=== PATIENT | male | born 1930 | race Caucasian/White ===

== ENCOUNTER 2017-11-12 14:29 | Inpatient (IN) | payer BC, MEDICARE ==
[~2017-11-12] VITALS: Ht 180.3 cm; Wt 88.5 kg
[2017-11-12] MEDS ORDERED: FEXO180T94 PO (14:43)
[2017-11-12] MEDS ORDERED: VALS160T2 PO (14:43)
[2017-11-12] MEDS ORDERED: METO50TA7 PO (14:43)
[2017-11-12] MEDS ORDERED: PROP225C11 PO (14:43)
[2017-11-12] MEDS ORDERED: DUTA0.5C PO (14:44)
[2017-11-12] MEDS ORDERED: SILO8CAP PO (14:44)
[2017-11-12] MEDS ORDERED: AZEL30SP2 NS (14:44)
[2017-11-12] MEDS ORDERED: BUDE8.43 NS (14:45)
[2017-11-12] MEDS ORDERED: BUDE180A INH (14:46)
[2017-11-12] MEDS ORDERED: MULT-978 PO (14:53)
[2017-11-12] MEDS ORDERED: ASPI81TA31 PO (14:54)
[2017-11-12] MEDS ORDERED: ALIGN PROBIOTIC PO (14:54)
[2017-11-12] MEDS ORDERED: OMEG1CAP18 PO (14:54)
[2017-11-12] MEDS ORDERED: UBID200C35 PO (14:54)
[2017-11-12] MEDS ORDERED: MELA3TAB PO (14:54)
[2017-11-12] MEDS ORDERED: ACET325C PO (14:54)
[2017-11-12] MEDS ORDERED: CA C1TAB98 PO (14:54)
[2017-11-12] MEDS ORDERED: ASCO500T9 PO (14:54)
[2017-11-12] MEDS ORDERED: IV NORMAL SALINE 1000 ML BAG IV ONE ×2 (15:00→16:15)
[2017-11-12 15:16] LABS: BASOPHILS % (AUTO) 0.2 % (0.0-2.0); EOSINOPHILS % (AUTO) 0.5 % (0.0-7.0); HEMATOCRIT 38.6 % (36.7-47.1); HEMOGLOBIN 12.9 g/dL (12.5-16.3); LYMPHOCYTES # (AUTO) 0.8 K/uL (20.0-40.0); MEAN CORPUSCULAR HEMOGLOBIN 30.4 uug (23.8-33.4); MEAN CORPUSCULAR HGB CONC 33 g/dL (32.5-36.3); MEAN CORPUSCULAR VOLUME 90.9 fL (73.0-96.2); MONOCYTES # (AUTO) 0.9 K/uL (2.0-10.0); MONOCYTES % (AUTO) 10.2 % (0.0-11.0); NEUTROPHILS % (AUTO) 80.1 % (38.5-71.5); PLATELET COUNT (AUTO) 211 K/uL (152-348); RED BLOOD CELL COUNT(AUTO) 4.25 MIL/uL (4.06-5.63); WHITE BLOOD COUNT (AUTO) 8.7 K/uL (3.6-10.2)
[2017-11-12 15:31] LABS: ALANINE AMINOTRANSFERASE 27 U/L (16-63); ALKALINE PHOSPHATASE 75 U/L (50-136); ASPARTATE AMINOTRANSFERASE 26 U/L (15-37); BILIRUBIN,DIRECT 0.1 mg/dL (0.0-0.2); BILIRUBIN,TOTAL 0.4 mg/dL (0.2-1.0); CARBON DIOXIDE 27 mmol/L (21-32); CHLORIDE 102 mmol/L (98-107); CREATININE 1.2 mg/dL (0.6-1.3); GLUCOSE 153 mg/dL (74-106); LIPASE 200 U/L (73-393); UREA NITROGEN, BLOOD 20 mg/dL (7-18)
[2017-11-12] MEDS ORDERED: CEFTRIAXONE 1 G in IV DEXTROSE 5% 50 ML IV ONE (16:15)
[2017-11-12] MEDS ORDERED: METRONIDAZOLE 500 MG/NS 100ML 100 ML IV ONE ×2 (16:15→16:22)
[2017-11-12] MEDS ORDERED: CEFTRIAXONE 1 G VIAL ONE (16:22)
[2017-11-12] MEDS ORDERED: IV NORMAL SALINE 100 ML ONE (16:28)
[2017-11-12] MEDS ORDERED: IOHEXOL 300MG/ML 100 ML INFUS..BTL ONE (16:28)
[2017-11-12] MEDS ORDERED: NORMAL SALINE FLUSH 10 ML DISP.SYRIN ONE (16:28)
[2017-11-12 16:56] LABS: *BILIRUBIN,URIN NEGATIVE (NEGATIVE); *BLOOD, URINE NEGATIVE (NEGATIVE); *CLARITY,URINE CLEAR (CLEAR); *COLOR,URINE YELLOW (YELLOW); *KETONES,URINE NEGATIVE (NEGATIVE); *PROTEIN,URINE NEGATIVE (NEGATIVE); *UROBILINOGEN,URINE 0.2 E.U./dl (NORMAL); LEUKOCYTE ESTERASE ,URINE NEGATIVE (NEGATIVE); NITRITE, URINE NEGATIVE (NEGATIVE); UGLUCOSE NEGATIVE (NEGATIVE)
[2017-11-12 17:03] LABS: BACTERIA,URINE NONE SEEN /HPF (NONE SEEN); RBC,URINE 0-3 /HPF (0-3); SQUAMOUS EPITHELIAL CELL,UR FEW /HPF (NONE SEEN); WBC,URINE 0-3 /HPF (0-3)
--- NOTE | 2017-11-12 17:41 | NUR ---
Patient ambulated 2x to bathroom with a walker, pending med-surgical bed at this time
--- NOTE | 2017-11-12 18:02 | NUR ---
Patient wants pains medicines, Dr Raygoza notified.
[2017-11-12] MEDS ORDERED: ONDANSETRON 4 MG/2 ML VIAL ONE (18:52)
[2017-11-12] MEDS ORDERED: MORPHINE SULFATE 2 MG/1 ML DISP.SYRIN ONE (18:52)
[2017-11-12] MEDS ORDERED: ONDANSETRON 4 MG/2 ML VIAL IV ONE (19:00)
[2017-11-12] MEDS ORDERED: MORPHINE SULFATE 2 MG/1 ML DISP.SYRIN IV ONE (19:00)
--- NOTE | 2017-11-12 19:01 | NUR ---
Patient was moved from [facility] to hospital bed for comfort. Dinner tray ordered. Patient ambulated to bathroom (to void) with a walker.
--- NOTE | 2017-11-12 19:16 | NUR ---
Patient's son called Kristofer Resendiz and gave #
[2017-11-12] MEDS ORDERED: METOPROLOL TARTRATE 50 MG TABLET ONE (20:12)
[2017-11-12] MEDS: METOPROLOL TARTRATE 50 MG TABLET PO SCH (20:14)
--- NOTE | 2017-11-12 20:30 | NUR ---
Received patient from ER. Patient is A/O x4, Maltese speaking & able to make needs known. Admit Dx of Intractable back pain. MD aware of patient's arrival to unit. No acute distress or SOB noted upon arrival. Patient complaining of lower extremity pain 9/10 on arrival. Will administer pain meds per MD order. Pertinent assessment completed. IV on right hand 18G flushing well, no s/s of redness or infiltration at IV site. BP elevated upon arrival at 161/76. Will administer BP meds per MD order and re assess. Skin is intact, clean, dry. Bed placed in low position & locked. Call light within reach of patient. Will continue to monitor patient through shift.
--- NOTE | 2017-11-12 20:33 | NUR ---
Transfered to 2nd floor via [facility]
[2017-11-12 21:10] VITALS: BP 161/76
[2017-11-12] MEDS ORDERED: CARISOPRODOL 350 MG TABLET PO SCH (21:45)
[2017-11-12] MEDS: MELATONIN 3 MG TABLET PO SCH (21:45)
[2017-11-12] MEDS ORDERED: ACETAMINOPHEN 325 MG TABLET PO PRN (21:45)
[2017-11-12] MEDS ORDERED: ONDANSETRON 4 MG/2 ML VIAL IV PRN (21:45)
[2017-11-12] MEDS: VALSARTAN 80 MG TABLET PO SCH (22:14)
[2017-11-12] MEDS: MORPHINE SULFATE 2 MG/1 ML DISP.SYRIN IV PRN (22:15)
[2017-11-13] MEDS: MORPHINE SULFATE 2 MG/1 ML DISP.SYRIN IV PRN ×2 (02:26→06:40)
[2017-11-13 04:00] VITALS: BP 163/70
[2017-11-13] MEDS: hydrALAZINE HCL 25 MG TABLET PO PRN ×2 (04:40→22:25)
--- NOTE | 2017-11-13 04:40 | NUR ---
BP elevated at 163/70. Will administer Hydralazine PRN as ordered per MD & re assess.
--- NOTE | 2017-11-13 05:40 | NUR ---
re assessed BP at 158/68. Will continue to monitor.
[2017-11-13] MEDS: PANTOPRAZOLE SODIUM 40 MG TABLET.DR PO SCH (06:07)
--- NOTE | 2017-11-13 06:47 | NUR ---
Patient stable through shift. No acute distress noted. Patient claims chronic lower extremity pain that worsens when he ambulates to the restroom & is relieved of pain when lying down. All needs attended to. All meds administered as ordered per MD. patient kept clean & dry. Safety measures implemented. Bed kept in low position. Encouraged patient to use call light when needing assistance to the restroom. Will endorse to day shift nurse.
[2017-11-13 07:24] LABS: ALANINE AMINOTRANSFERASE 26 U/L (16-63); ALKALINE PHOSPHATASE 79 U/L (50-136); ASPARTATE AMINOTRANSFERASE 24 U/L (15-37); BILIRUBIN,TOTAL 0.5 mg/dL (0.2-1.0); CARBON DIOXIDE 30 mmol/L (21-32); CHLORIDE 105 mmol/L (98-107); CHOLESTEROL 142 mg/dL (<200); GLUCOSE 106 mg/dL (74-106); HDL CHOLESTEROL 62 mg/dL (40-60); MAGNESIUM 2.1 mg/dL (1.8-2.4); PHOSPHOROUS 3.4 mg/dL (2.5-4.9); POTASSIUM 4.5 mmol/L (3.5-5.1); TOTAL PROTEIN, SERUM 7.2 g/dL (6.4-8.2); TRIGLYCERIDES 74 MG/DL (30-150); UREA NITROGEN, BLOOD 12 mg/dL (7-18)
--- NOTE | 2017-11-13 07:33 | NUR ---
PATIENT NOTED RESTING IN BED WITH EYES CLOSED, NO FACIAL CUES OF PAIN AT THIS TIME, NO SIGNS OF DISTRESS NOTED, CALL LIGHT IN REACH, BED LOCKED AND IN LOWEST POSITION, X 2 BED RAILS
[2017-11-13 07:38] LABS: THYROID STIMULATING HORMONE 3.365 mIU/mL (0.358-3.740)
[2017-11-13 07:43] LABS: BASOPHILS # (AUTO) 0.1 K/uL (0.0-8.0); BASOPHILS % (AUTO) 0.6 % (0.0-2.0); EOSINOPHILS # (AUTO) 0.2 K/uL (0.0-0.7); EOSINOPHILS % (AUTO) 1.9 % (0.0-7.0); HEMATOCRIT 40.5 % (36.7-47.1); HEMOGLOBIN 13.5 g/dL (12.5-16.3); LYMPHOCYTES # (AUTO) 1.8 K/uL (20.0-40.0); LYMPHOCYTES % (AUTO) 21.2 % (20.5-51.5); MEAN CORPUSCULAR HEMOGLOBIN 30.6 uug (23.8-33.4); MEAN CORPUSCULAR HGB CONC 33 g/dL (32.5-36.3); MEAN CORPUSCULAR VOLUME 92.1 fL (73.0-96.2); MONOCYTES # (AUTO) 0.9 K/uL (2.0-10.0); MONOCYTES % (AUTO) 10.4 % (0.0-11.0); NEUTROPHILS # (AUTO) 5.7 K/uL (1.8-8.9); NEUTROPHILS % (AUTO) 65.9 % (38.5-71.5); PLATELET COUNT (AUTO) 215 K/uL (152-348); WHITE BLOOD COUNT (AUTO) 8.7 K/uL (3.6-10.2)
[2017-11-13] MEDS: ASPIRIN 81 MG TAB.CHEW PO SCH (08:16)
[2017-11-13] MEDS: MULTIVIT, IRON, MIN NO. 8, FA TABLET PO SCH (08:16)
[2017-11-13] MEDS: ASCORBIC ACID 500 MG TABLET PO SCH (08:16)
[2017-11-13] MEDS: DUTASTERIDE 0.5 MG CAPSULE PO SCH (08:16)
[2017-11-13] MEDS: METOPROLOL TARTRATE 50 MG TABLET PO SCH ×2 (08:17→20:05)
[2017-11-13] MEDS: VALSARTAN 80 MG TABLET PO SCH ×2 (08:17→20:05)
[2017-11-13] MEDS: FEXOFENADINE HCL 180 MG TABLET PO SCH (09:00)
--- NOTE | 2017-11-13 10:47 | NUR ---
MD Botello new orders to increase morphine IV from 2 mg to 4 mg Q3 hr PRN
[2017-11-13] MEDS ORDERED: MORPHINE SULFATE 2 MG/1 ML DISP.SYRIN IV PRN (11:00)
[2017-11-13 11:30] VITALS: BP 135/66
[2017-11-13 15:22] VITALS: BP 157/64
[2017-11-13] MEDS ORDERED: CARISOPRODOL 350 MG TABLET PO PRN (15:30)
[2017-11-13] MEDS: MORPHINE SULFATE 4 MG/1 ML DISP.SYRIN IV PRN ×2 (18:57→22:39)
[2017-11-13 20:00] VITALS: BP 173/92
[2017-11-13] MEDS: DOCUSATE SODIUM 250 MG CAPSULE PO SCH (20:05)
[2017-11-13] MEDS: TAMSULOSIN HCL 0.4 MG CAP.SR.24H PO SCH (20:05)
--- NOTE | 2017-11-13 20:10 | NUR ---
RECEIVED PATIENT AWAKE IN BED. PATIENT IS A/O X4. DR. MITCHELL, AT BEDSIDE TO SPEAK WITH PATIENT REGARDING EPIDURAL PROCEDURE IN AM. NO C/O PAIN AT THIS TIME, PATIENT JUST VERBALIZES A CONSTANT DISCOMFORT, BUT DENIES THE NEED FOR ANY PAIN MEDIATION AT THIS TIME. BP ELEVATED. PATIENT GIVEN HIS ROUTINE BLOOD PRESSURE MEDICATIONS AND WILL CONTINUE TO MONITOR AND FURTHER ASSESS. NO RESP. DISTRESS NOTED. H/L INTACT AND PATENT. CALL LIGHT IN REACH. ALL NEEDS ATTENDED, WILL CONTINUE TO MONITOR AND ASSESS.
[2017-11-13] MEDS: MELATONIN 3 MG TABLET PO SCH (21:04)
[2017-11-13] MEDS: PROPAFENONE HCL 150 MG TABLET PO SCH (21:06)
[2017-11-13] MEDS: GABAPENTIN 300 MG CAPSULE PO SCH (21:14)
--- NOTE | 2017-11-13 22:25 | NUR ---
PATIENT AWAKE IN BED, WATCHING TV. RECHECKED BP AND STILL VERY ELEVATED. 171/67. ALL OTHER VSS. PATIENT GIVEN HYDRALAZINE 25MG PO PRN FOR BP ABOVE 150. WILL CONTINUE TO MONITOR.
--- NOTE | 2017-11-14 | NUR ---
PATIENT NPO AT THIS TIME ORDERED FOR PROCEDURE IN AM.
[2017-11-14 05:00] VITALS: BP 127/73
[2017-11-14] MEDS: PROPAFENONE HCL 150 MG TABLET PO SCH ×3 (05:46→21:26)
[2017-11-14] MEDS: PANTOPRAZOLE SODIUM 40 MG TABLET.DR PO SCH (06:22)
--- NOTE | 2017-11-14 06:45 | NUR ---
PATIENT AWAKE IN BED. RECEIVED CALL THAT SURGERY WILL [employer] PATIENT AT 0830. PATIENTS PERSONAL BELONGINGS LOCKED UP IN #4 CONTRABAND LOCKER. WILL ENDORSE TO AM NURSE. PATIENT IS REFUSING TO TAKE OUT PARTIAL DENTURES, NOTIFIED SURGERY TEAM. VSS. PATIENT SLEPT WELL THROUGHOUT THE NIGHT. CALL LIGHT IN REACH. ALL NEEDS ATTENDED. WILL CONTINUE TO MONITOR AND ASSESS.
[2017-11-14] MEDS ORDERED: LIDOCAINE HCL 1% 20 ML VIAL ONE (07:47)
[2017-11-14] MEDS ORDERED: BETAMETHASONE ACET/BETAMET NA PH 30 MG/5 ML VIAL IM ONE (07:47)
[2017-11-14] MEDS ORDERED: DEXAMETHASONE SOD PHOSPHATE 10 MG INJ ONE (07:47)
[2017-11-14] MEDS ORDERED: BUPIVACAINE 0.25% 30 ML VIAL ONE (07:48)
[2017-11-14] MEDS ORDERED: BUPIVACAINE PF 0.5% 30 ML VIAL ONE (07:48)
[2017-11-14] MEDS ORDERED: IOHEXOL-240 MG , 50 ML VIAL IV ONE (07:48)
[2017-11-14 07:56] LABS: BASOPHILS % (AUTO) 0.6 % (0.0-2.0); EOSINOPHILS # (AUTO) 0.3 K/uL (0.0-0.7); EOSINOPHILS % (AUTO) 3.1 % (0.0-7.0); HEMATOCRIT 41.7 % (36.7-47.1); HEMOGLOBIN 13.9 g/dL (12.5-16.3); LYMPHOCYTES % (AUTO) 23.1 % (20.5-51.5); MEAN CORPUSCULAR HEMOGLOBIN 30.4 uug (23.8-33.4); MEAN CORPUSCULAR HGB CONC 33 g/dL (32.5-36.3); MEAN CORPUSCULAR VOLUME 91.2 fL (73.0-96.2); MONOCYTES # (AUTO) 0.8 K/uL (2.0-10.0); MONOCYTES % (AUTO) 9.6 % (0.0-11.0); NEUTROPHILS # (AUTO) 5.4 K/uL (1.8-8.9); NEUTROPHILS % (AUTO) 63.6 % (38.5-71.5); PLATELET COUNT (AUTO) 255 K/uL (152-348); RED BLOOD CELL COUNT(AUTO) 4.57 MIL/uL (4.06-5.63); WHITE BLOOD COUNT (AUTO) 8.5 K/uL (3.6-10.2)
--- NOTE | 2017-11-14 08:00 | NUR ---
PATIENT PICKED UP BY BED TO OR FOR THE EPIDURAL INJECTION INTO HIS BACK.PATIENT IS AWAKE ALERT AND ORIENTED REPORT GIVEN THAT THE DNR FORM FOR REVERSAL WAS NOT COMPLETED BECAUSE THIS PROCEDURE WILL BE DONE UNDER LOCAL ANESTHESIA AND SHE EXPRESSED UNDERSTANDING.
[2017-11-14] MEDS: MULTIVIT, IRON, MIN NO. 8, FA TABLET PO SCH (09:12)
[2017-11-14] MEDS: ASPIRIN 81 MG TAB.CHEW PO SCH (09:13)
[2017-11-14] MEDS: ASCORBIC ACID 500 MG TABLET PO SCH (09:13)
[2017-11-14] MEDS: FEXOFENADINE HCL 180 MG TABLET PO SCH (09:13)
[2017-11-14] MEDS: DUTASTERIDE 0.5 MG CAPSULE PO SCH (09:13)
[2017-11-14] MEDS: VALSARTAN 80 MG TABLET PO SCH ×2 (09:14→21:25)
[2017-11-14] MEDS: METOPROLOL TARTRATE 50 MG TABLET PO SCH ×2 (09:14→21:26)
[2017-11-14 09:26] LABS: ALANINE AMINOTRANSFERASE 33 U/L (16-63); ALKALINE PHOSPHATASE 79 U/L (50-136); ASPARTATE AMINOTRANSFERASE 20 U/L (15-37); BILIRUBIN,TOTAL 0.4 mg/dL (0.2-1.0); CARBON DIOXIDE 31 mmol/L (21-32); CHLORIDE 103 mmol/L (98-107); GLUCOSE 107 mg/dL (74-106); MAGNESIUM 2.2 mg/dL (1.8-2.4); PHOSPHOROUS 3.8 mg/dL (2.5-4.9); POTASSIUM 4.1 mmol/L (3.5-5.1); TOTAL PROTEIN, SERUM 7.3 g/dL (6.4-8.2); UREA NITROGEN, BLOOD 14 mg/dL (7-18)
--- NOTE | 2017-11-14 09:35 | NUR ---
PATIENT RETURNED BACK TO HIS ROOM AT 0900 AWAKE ALERT AND ORIENTED DENIES PAIN OR DISCOMFORTS AT THIS TIME.DUE MEDICATIONS GIVEN AND TOLERATED WELL WILL CONTINUE TO OBSERVE.
--- NOTE | 2017-11-14 11:00 | NUR ---
PATIENT PERSONAL BELONGINGS WHICH INCLUDED A WATCH A SALOMON PACK RETRIEVED FROM THE CONTRABAND LOCKER AND GIVEN BACK TO THE PATIENT WITHNESSED BY ANOTHER STAFF.
--- NOTE | 2017-11-14 11:30 | NUR ---
PATIENT SEEN BY THE PHYSICAL THERAPY AND HE WALKED IN THE HALLWAY WITH THE FRONT WHEEL WALKER AND TOLERATED WELL.
[2017-11-14 12:00] VITALS: BP 111/69
[2017-11-14] MEDS: MORPHINE SULFATE 4 MG/1 ML DISP.SYRIN IV PRN ×3 (13:38→21:31)
[2017-11-14 15:28] VITALS: BP 120/69
[2017-11-14] MEDS: GABAPENTIN 300 MG CAPSULE PO SCH (17:11)
--- NOTE | 2017-11-14 17:54 | NUR ---
PATIENT CONTINUE TO NEED PAIN MEDICATIONS FOR LEFT LEG PAIN AND USUALLY HELPFUL.TOLERATED DIET ORDERED MADE COMFORTABLE AND WILL CONTINUE TO OBSERVE.
--- NOTE | 2017-11-14 19:40 | NUR ---
RECEIVED PATIENT IN BED ALERT, ORIENTED, NO SOB NO CHEST PAIN, SP EPIDURAL NO ADVERSE REACTION NOTED, CLAIMED THAT HE FELT THE DIFFERENCE AFTER THE EPIDURAL PAIN SHOT, CONT ON PAIN MANAGEMENT, CALL LIGHT WITHIN REACH.
[2017-11-14 19:43] VITALS: BP 156/67
[2017-11-14] MEDS: DOCUSATE SODIUM 250 MG CAPSULE PO SCH (21:24)
[2017-11-14] MEDS: TAMSULOSIN HCL 0.4 MG CAP.SR.24H PO SCH (21:25)
[2017-11-14] MEDS: MELATONIN 3 MG TABLET PO SCH (22:44)
[2017-11-15 04:00] VITALS: BP 169/69
--- NOTE | 2017-11-15 05:27 | NUR ---
PATIENT SLEPT MOST OF THE NIGHT, NO SOB NO CHEST PAIN NOTED, ASSISTED WITH TOILETING, CONT ON PAIN MANAGEMENT, CALL LIGHT WITHIN REACH.
[2017-11-15] MEDS: PANTOPRAZOLE SODIUM 40 MG TABLET.DR PO SCH (06:04)
[2017-11-15] MEDS: PROPAFENONE HCL 150 MG TABLET PO SCH ×3 (06:04→21:00)
[2017-11-15] MEDS: hydrALAZINE HCL 25 MG TABLET PO PRN (06:37)
--- NOTE | 2017-11-15 07:45 | NUR ---
Rec'd pt in bed, awake, A&Ox4. No s/s of acute distress noted. Denies pain at this time. Admitted for Intractable Lower back and BLE pain. Rec'd epidural steroid injection yesterday. No complications noted from procedure. All needs met at this time. Will monitor for change.
[2017-11-15] MEDS: MULTIVIT, IRON, MIN NO. 8, FA TABLET PO SCH (08:50)
[2017-11-15] MEDS: ASCORBIC ACID 500 MG TABLET PO SCH (08:50)
[2017-11-15] MEDS: METOPROLOL TARTRATE 50 MG TABLET PO SCH ×2 (08:50→21:01)
[2017-11-15] MEDS: VALSARTAN 80 MG TABLET PO SCH ×2 (08:51→21:04)
[2017-11-15] MEDS: DUTASTERIDE 0.5 MG CAPSULE PO SCH (08:51)
[2017-11-15] MEDS: ASPIRIN 81 MG TAB.CHEW PO SCH (08:51)
[2017-11-15] MEDS: MORPHINE SULFATE 4 MG/1 ML DISP.SYRIN IV PRN ×2 (08:52→15:32)
[2017-11-15] MEDS: FEXOFENADINE HCL 180 MG TABLET PO SCH (09:23)
[2017-11-15 11:32] VITALS: BP 146/65
[2017-11-15 15:10] VITALS: BP 159/63
--- NOTE | 2017-11-15 17:15 | NUR ---
Pt endorsed to incoming nurse. Remained stable during shift. Pain managed with Morphine 4mg IV Q3-4hrs. Pt denies pain at this time. In bed watching TV.
[2017-11-15] MEDS: GABAPENTIN 300 MG CAPSULE PO SCH (17:47)
--- NOTE | 2017-11-15 19:30 | NUR ---
RECEIVED PATIENT IN HIS ROOM SEATED IN CHAIR, NO SOB NO CHEST PAIN, NO COMPLAIN OF PAIN AT THIS TIME, PATIENT ASSISTED WITH TOILETING, KEPT CLEAN AND DRY.
[2017-11-15 20:00] VITALS: BP 159/68
[2017-11-15] MEDS: DOCUSATE SODIUM 250 MG CAPSULE PO SCH (21:00)
[2017-11-15] MEDS: TAMSULOSIN HCL 0.4 MG CAP.SR.24H PO SCH (21:00)
[2017-11-15] MEDS: MELATONIN 3 MG TABLET PO SCH (21:02)
[2017-11-16 04:00] VITALS: BP 157/70
[2017-11-16] MEDS: PANTOPRAZOLE SODIUM 40 MG TABLET.DR PO SCH (06:48)
[2017-11-16] MEDS: PROPAFENONE HCL 150 MG TABLET PO SCH ×3 (06:48→21:09)
[2017-11-16] MEDS: hydrALAZINE HCL 25 MG TABLET PO PRN (06:53)
--- NOTE | 2017-11-16 07:20 | NUR ---
Received patient awake, alert and oriented times 4. Pt is under no immediate distress, discomfort, SOB, states pain but says nothing will help. Pt looks comfortable wearing his own cloths, IV site on the right hand intact. Pt is requesting a fleet enema due to being constipated. On room air, bed at lowest position for safety and call light within reach for assistance.
--- NOTE | 2017-11-16 07:45 | NUR ---
is aware of pt's request for an enema
[2017-11-16] MEDS ORDERED: FLEET ENEMA 133 ML BOTTLE RC ONE (08:30)
--- NOTE | 2017-11-16 10:00 | NUR ---
pt had BM. Pt feels better. Compliant with nursing care and medications. Pt is very nice. Alert and oriented time 4. Bed at lowest position for safety and call light within reach for assistance
[2017-11-16] MEDS: DUTASTERIDE 0.5 MG CAPSULE PO SCH (10:11)
[2017-11-16] MEDS: VALSARTAN 80 MG TABLET PO SCH ×2 (10:12→21:00)
[2017-11-16] MEDS: ASCORBIC ACID 500 MG TABLET PO SCH (10:12)
[2017-11-16] MEDS: AMLODIPINE 5 MG TABLET PO SCH (10:13)
[2017-11-16] MEDS: METOPROLOL TARTRATE 50 MG TABLET PO SCH ×2 (10:13→21:00)
[2017-11-16] MEDS: MULTIVIT, IRON, MIN NO. 8, FA TABLET PO SCH (10:14)
[2017-11-16] MEDS: ASPIRIN 81 MG TAB.CHEW PO SCH (10:14)
[2017-11-16] MEDS: FEXOFENADINE HCL 180 MG TABLET PO SCH (10:14)
[2017-11-16] MEDS: MAGNESIUM HYDROXIDE 30 ML LIQUID UDC PO PRN (10:14)
[2017-11-16 11:33] VITALS: BP 147/62
[2017-11-16 15:34] VITALS: BP 149/62
[2017-11-16] MEDS: GABAPENTIN 300 MG CAPSULE PO SCH (17:37)
[2017-11-16 20:00] VITALS: BP 124/57
[2017-11-16] MEDS: DOCUSATE SODIUM 250 MG CAPSULE PO SCH (21:09)
[2017-11-16] MEDS: TAMSULOSIN HCL 0.4 MG CAP.SR.24H PO SCH (21:09)
[2017-11-16] MEDS: MELATONIN 3 MG TABLET PO SCH (21:09)
[2017-11-17 04:00] VITALS: BP 135/59
[2017-11-17] MEDS: PROPAFENONE HCL 150 MG TABLET PO SCH ×2 (06:20→13:30)
[2017-11-17] MEDS: PANTOPRAZOLE SODIUM 40 MG TABLET.DR PO SCH (06:21)
--- NOTE | 2017-11-17 06:44 | NUR ---
Assisted pt to shower last night prior to bed. Compliant with all meds. Pt states pain 02/20 but refused morphine. Requested 2 Tylenol and went to bed. Slept well through the night.
--- NOTE | 2017-11-17 07:23 | NUR ---
Received pt sleeping in bed in a supine position. No apparent s/s of immediate SOB, pain, distress or discomfort. No IV hydration running at this time, no O2 in use. Bed at lowest position for safety and call light within reach for assistance.
[2017-11-17] MEDS: MAGNESIUM HYDROXIDE 30 ML LIQUID UDC PO PRN (08:55)
[2017-11-17] MEDS: VALSARTAN 80 MG TABLET PO SCH (08:56)
[2017-11-17] MEDS: MULTIVIT, IRON, MIN NO. 8, FA TABLET PO SCH (08:56)
[2017-11-17] MEDS: AMLODIPINE 5 MG TABLET PO SCH (08:56)
[2017-11-17] MEDS: ASPIRIN 81 MG TAB.CHEW PO SCH (08:56)
[2017-11-17] MEDS: METOPROLOL TARTRATE 50 MG TABLET PO SCH (08:57)
[2017-11-17] MEDS: ASCORBIC ACID 500 MG TABLET PO SCH (08:57)
[2017-11-17] MEDS: DUTASTERIDE 0.5 MG CAPSULE PO SCH (08:57)
[2017-11-17] MEDS: FEXOFENADINE HCL 180 MG TABLET PO SCH (08:57)
--- NOTE | 2017-11-17 09:23 | NUR ---
Pt is noted to be walking with PT with an assistive device, walker. No apparent s/s of SOB, pain, distress or discomfort.
[2017-11-17 11:37] VITALS: BP 113/47
[2017-11-17] MEDS ORDERED: VALS80TA2 PO (13:36)
[2017-11-17] MEDS ORDERED: PROP150T9 PO (13:36)
[2017-11-17] MEDS ORDERED: ACET325T53 PO (13:36)
[2017-11-17] MEDS ORDERED: MELA3TAB PO (13:36)
[2017-11-17] MEDS ORDERED: CARI350T27 PO (13:36)
[2017-11-17] MEDS ORDERED: GABA-534 PO (13:36)
[2017-11-17] MEDS ORDERED: Morphine Sulfate Inj IV (13:36)
[2017-11-17] MEDS ORDERED: DOCU250C14 PO (13:36)
[2017-11-17] MEDS ORDERED: AMLO5TAB2 PO (13:36)
[2017-11-17] MEDS ORDERED: MAGN400O6 PO (13:36)
[2017-11-17] MEDS ORDERED: PANT40TA2 PO (13:36)
--- NOTE | 2017-11-17 15:00 | NUR ---
Pt was discharge with order, son is aware. Discharge documents and personal belonging signed for. ID and Iv line removed. No apparent s/s of SOB, pain, distress or discomfort at this time. Discharge pictures taken with approval from pt. Report was given to the [facility]. Report was given to the two female credit coordinator from ambulance.
== END 2017-11-17 15:00 | DRG 543 ==
LOC: ER 14:29 → MED 20:27
PROVIDERS: ADMIT Internal Medicine; ATTEND Internal Medicine
PROC: 3E0R3BZ Introduction of Anesthetic Agent into Spinal Canal, Percutaneous Approach (ICD-10-PCS; 2017-11-14)
PROC: 3E0R33Z Introduction of Anti-inflammatory into Spinal Canal, Percutaneous Approach (ICD-10-PCS; principal; 2017-11-14 08:25)
DX: M48.56XA Collapsed vertebra, not elsewhere classified, lumbar region, initial encounter for fracture (principal); E44.0 Moderate protein-calorie malnutrition; D68.59 Other primary thrombophilia; I48.2 Chronic atrial fibrillation; Q61.3 Polycystic kidney, unspecified; I11.9 Hypertensive heart disease without heart failure; I08.0 Rheumatic disorders of both mitral and aortic valves; G89.29 Other chronic pain; K80.20 Calculus of gallbladder without cholecystitis without obstruction; M19.90 Unspecified osteoarthritis, unspecified site; M47.26 Other spondylosis with radiculopathy, lumbar region; M48.061 Spinal stenosis, lumbar region without neurogenic claudication; M54.9 Dorsalgia, unspecified; N40.0 Benign prostatic hyperplasia without lower urinary tract symptoms; Z96.651 Presence of right artificial knee joint; Z91.81 History of falling; Z90.79 Acquired absence of other genital organ(s); Z98.49 Cataract extraction status, unspecified eye; Z68.27 Body mass index [BMI] 27.0-27.9, adult; R73.9 Hyperglycemia, unspecified; Z87.820 Personal history of traumatic brain injury; I49.1 Atrial premature depolarization; I37.1 Nonrheumatic pulmonary valve insufficiency; M48.56XG Collapsed vertebra, not elsewhere classified, lumbar region, subsequent encounter for fracture with delayed healing
CPT/HCPCS: 36415; 70030-TC; 71045; 72220; 76000; 82306; 83605; 83690; 83735; 84100; 84443; 85025; 85730; 86140; 87040; 87086; 93005; 93307; 97116; 97530; A4663; J0696; J0702; J1100; J2270; J2405; J3490; J7030; J7040; J7050; Q9966; Q9967